=== PATIENT | female | born 1990 | race Hispanic/Latino ===

== ENCOUNTER 2019-09-22 16:12 | Emergency (ER) | payer OTHER ==
[~2019-09-22] VITALS: Ht 162.6 cm; Wt 65.0 kg
[2019-09-22] MEDS ORDERED: PEPC1TAB5 PO (16:20)
[2019-09-22] MEDS ORDERED: RABE1TAB PO (16:20)
[2019-09-22] MEDS ORDERED: TIZA4CAP PO (16:21)
[2019-09-22] MEDS ORDERED: ONDANSETRON 4MG/2ML VIAL IV ONE (17:00)
[2019-09-22] MEDS ORDERED: GI COCKTAIL 50ML BTL(HYOSCYAMINE/MAALOX/LIDOCAINE VISCOUS)(1:3:1) PO ONE (17:00)
[2019-09-22] MEDS ORDERED: KETOROLAC 30 MG/ML 1ML VIAL IV ONE (17:00)
[2019-09-22] MEDS ORDERED: NS 1,000 ML IV ONE (17:00)
[2019-09-22 17:18] LABS: BASO # 0.1 10^3/uL (0.0-0.2); EOS # 0.1 10^3/uL (0.0-0.5); EOS % 1.8 % (0.0-3.0); HEMATOCRIT 40.3 % (36.0-47.0); HEMOGLOBIN 13.9 g/dl (12.0-15.5); LYMPH # 2.2 10^3/uL (1.5-5.0); LYMPH % 29.8 % (24.0-44.0); MEAN CORPUSCULAR HEMOGLOBIN 29.3 pg (27.0-33.0); MEAN CORPUSCULAR HGB CONC 34.5 g/dl (32.0-36.5); MONO # 0.6 10^3/uL (0.0-0.8); MONO % 7.7 % (0.0-5.0); NEUTROPHILS # 4.3 10^3/uL (1.5-8.5); NEUTROPHILS % 59.4 % (36.0-66.0); PLATELET COUNT, AUTOMATED 362 10^3/uL (150-450); RED BLOOD COUNT 4.74 10^6/uL (4.00-5.40); WHITE BLOOD COUNT 7.3 10^3/uL (4.0-10.0)
--- NOTE | 2019-09-22 17:46 | REPVR ---
PROCEDURE INFORMATION: Exam: US Abdomen Limited, Right Upper Quadrant Exam date and time: 09/22/2019 4:58 PM Age: 28 years old Clinical indication: Abdominal pain; Epigastric; Additional info: Ruq pain TECHNIQUE: Imaging protocol: Real-time ultrasound of the abdomen with image documentation. Examination was focused on the right upper quadrant. COMPARISON: No relevant prior studies available. FINDINGS: Liver: Unremarkable as visualized. No hepatic mass identified. Gallbladder: The gallbladder is distended with shadowing gallstones. The gallbladder measures 16.2 cm in length. Borderline gallbladder wall thickening visualized, which can be associated with acute cholecystitis. Common bile duct: 0.4 cm. No dilation. Pancreas: There is limited evaluation of the tail of the pancreas due to bowel gas. No focal abnormality is seen within the visualized head or body of the pancreas. Right kidney: The right kidney measures 9.6 x 3.8 5.7 cm. No hydronephrosis or shadowing nephrolithiasis. IMPRESSION: 1. The gallbladder is distended with shadowing gallstones. Borderline gallbladder wall thickening visualized, which can be associated with acute cholecystitis. Clinical correlation recommended. 2. Additional findings described above. Electronically signed by: Hector Niño On 09/22/2019 17:46:42 PM
[2019-09-22 17:56] LABS: HCG, SERUM QUALITATIVE NEGATIVE (NEGATIVE)
[2019-09-22 18:00] LABS: ALBUMIN 4.3 GM/DL (3.2-5.2); ALT/SGPT 24 U/L (12-78); BILIRUBIN,DIRECT 0.1 MG/DL (0.0-0.2); BILIRUBIN,TOTAL 0.4 MG/DL (0.2-1.0); BLOOD UREA NITROGEN 8 MG/DL (7-18); CALCIUM LEVEL 9.1 MG/DL (8.5-10.1); CARBON DIOXIDE LEVEL 26 MEQ/L (21-32); CHLORIDE LEVEL 105 MEQ/L (98-107); CK-MB VALUE MASS < 1.0 NG/ML (<3.6); CPK CREATINE PHOSPHOKINASE 106 U/L (26-192); CREATININE FOR GFR 0.85 MG/DL (0.55-1.30); GLOMERULAR FILTRATION RATE > 60.0 (>60); GLUCOSE, FASTING 111 MG/DL (70-100); LIPASE 125 U/L (73-393); MB/CK RELATIVE INDEX 0.94 (< OR =4); POTASSIUM SERUM 3.6 MEQ/L (3.5-5.1); SODIUM LEVEL 138 MEQ/L (136-145); TOTAL PROTEIN 7.9 GM/DL (6.4-8.2); TROPONIN I < 0.02 NG/ML (< 0.10)
[2019-09-22 18:30] VITALS: BP 141/75
[2019-09-22] MEDS ORDERED: ONDA4TAB6 PO (18:47)
--- NOTE | 2019-09-22 22:41 | REP ---
REASON: Pleurodynia with inspiration. TWO-VIEW CHEST: COMPARISON: No priors. FINDINGS: The superior mediastinal structures are midline. The cardiac silhouette is unremarkable in size, shape, and position. The diaphragmatic surfaces of the lungs are regular, and the costophrenic angles are clear. The pulmonary mendez are clear. The imaged osseous structures are intact. IMPRESSION: There is no acute cardiopulmonary disease. Electronically Signed by Torsten Murrell DO 09/23/2019 08:34 A
--- NOTE | 2019-09-23 03:44 | ECGEPIP ---
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
--- NOTE | 2019-09-23 09:34 | ED PDOC ---
Post-Departure Follow-Up ft [facility] rosas faxed formal report of us for fu Roxanne Bob MD Sep 23, 2019 09:34
== END 2019-09-22 19:08 | disposition home or self-care (01) ==
LOC: M ED 16:12
DX: K80.51 Calculus of bile duct without cholangitis or cholecystitis with obstruction (principal); K21.9 Gastro-esophageal reflux disease without esophagitis; Z88.0 Allergy status to penicillin
CPT/HCPCS: 71046; 76705; 80048; 80076; 81001; 82550; 82553; 83690; 84484; 84703; 85025; 85379; 87086; 93005; 96374; 96375; 99284; J1885; J2405

== ENCOUNTER → 2019-10-17 | Outpatient (CLI) | payer OTHER ==
[~2019-10-17] MED LIST: ACET-653 PO; ONDA4TAB6 PO; PANT40TA3 PO; PEPC1TAB5 PO; RABE1TAB PO; TIZA4CAP PO
== END ==
LOC: M LABSMTC 09:55
PROVIDERS: ATTEND Anesthesiology
DX: Z01.818 Encounter for other preprocedural examination (principal); Z11.59 Encounter for screening for other viral diseases
CPT/HCPCS: C9803; U0003

== ENCOUNTER 2019-10-20 13:38 | Day surgery (SDC) | payer OTHER ==
[~2019-10-20] VITALS: Ht 162.6 cm; Wt 63.4 kg
[~2019-10-20 13:38] MED LIST changes: +LIDOCAINE 1% MDV 20ML VIAL SQ PRN; +LR 1,000 ML IV ONE; +PANT40TA29 PO; -PANT40TA3 PO; -RABE1TAB PO; +RABE1TAB4 PO
[2019-10-20] MEDS ORDERED: MIDAZOLAM INJ 2MG/2ML VIAL (J2250 PER 1MG) As Ordered ONE (13:48)
[2019-10-20] MEDS ORDERED: KETOROLAC 60MG 2ML VIAL As Ordered ONE ×2 (13:48→17:22)
[2019-10-20] MEDS ORDERED: ONDANSETRON 4MG/2ML VIAL As Ordered ONE (13:48)
[2019-10-20] MEDS ORDERED: fentaNYL 250 MCG/5 ML INJECTION (J3010) As Ordered ONE (13:48)
[2019-10-20] MEDS ORDERED: dexameTHASONE 4 MG/ML 1ML VIAL (J1100 PER 1MG) As Ordered ONE (13:48)
[2019-10-20] MEDS ORDERED: ROCURONIUM BROMIDE 50 MG/5 ML VIAL As Ordered ONE ×2 (13:49→16:28)
[2019-10-20] MEDS ORDERED: PHENYLephrine 500MCG 5ML (100MCG/ML) SYRINGE As Ordered ONE (13:49)
[2019-10-20] MEDS ORDERED: propofoL 200 MG/20 ML VIAL As Ordered ONE ×2 (13:49→16:34)
[2019-10-20] MEDS ORDERED: SUGAMMADEX SODIUM 500 MG/5 ML VIAL (BRIDION) As Ordered ONE (13:49)
[2019-10-20] MEDS ORDERED: LIDOCAINE 2% 100MG/5ML SDV (FOR ANES.) As Ordered ONE (13:49)
[2019-10-20] MEDS ORDERED: ePHEDrine SULFATE 25 MG/5 ML(5MG/ML) SYRINGE As Ordered ONE (13:49)
[2019-10-20] MEDS ORDERED: BUPIVACAINE HCL 0.25% 30ML VIAL As Ordered ONE (15:38)
[2019-10-20] MEDS ORDERED: ACETAMINOPHEN 1000MG 100ML IV BTL (OFIRMEV) (J0131 PER 10MG) As Ordered ONE (16:17)
[2019-10-20] MEDS ORDERED: ACETAMINOPH W/CODEINE #3 TAB UD PO PRN (18:45)
[2019-10-20] MEDS ORDERED: fentaNYL 100 MCG/2 ML INJECTION (J3010) IV PRN (18:45)
[2019-10-20] MEDS ORDERED: METOCLOPRAMIDE INJ 10MG/2ML VIAL (J2765 PER 1) IV PRN (18:45)
[2019-10-20] MEDS ORDERED: ONDANSETRON 4MG/2ML VIAL IV PRN (18:45)
[2019-10-20] MEDS ORDERED: oxyCODONE 5MG TAB PO PRN (18:45)
[2019-10-20] MEDS ORDERED: HYDROMORPHONE HCL 0.5 MG/ 0.5 ML SYRINGE (J1170 PER 1) IV PRN (18:45)
[2019-10-20] MEDS ORDERED: LR 1,000 ML IV SCH (18:45)
[2019-10-20] MEDS ORDERED: ACETAMINOPHEN TAB 650MG DOSE (2X325MG) PO PRN (18:45)
[2019-10-20] MEDS ORDERED: IBUPROFEN 600MG TAB PO PRN (18:45)
[2019-10-20 20:10] VITALS: BP 117/69
--- NOTE | 2019-10-22 15:50 | RO ---
DATE OF PROCEDURE: 10/20/2019 PREOPERATIVE DIAGNOSIS: Symptomatic gallstones. POSTOPERATIVE DIAGNOSIS: Cholelithiasis with acute and chronic cholecystitis and hydrops of the gallbladder. PROCEDURE PERFORMED: Laparoscopic cholecystectomy. SURGEON: Dr. Murray OPERATIONS LIAISON: ANESTHESIA: General. INDICATIONS FOR THE PROCEDURE: Patient is a pleasant 20-year-old who had been seen in the emergency department on 09/22/2019 for an episode of severe upper abdominal pain. She reported a history of what had been diagnosed as gastroesophageal reflux. Per evaluation, gallstones with a distended gallbladder with some borderline gallbladder wall thickening. Since that visit to the emergency department, she has had intermittent recurrent pains brought on by eating. Her history is certainly consistent with biliary colic and possibly a persistent cystic duct obstruction. She is now for laparoscopic cholecystectomy. OPERATIVE PROCEDURE: The patient was brought to the operating room and placed supine on the operating table. She was placed under general endotracheal anesthesia. The patient's abdomen was prepped and draped in a sterile fashion. 0.25% Marcaine was infiltrated at the trocar sites as needed. Initially, a short transverse supraumbilical incision was made. This was deepened to the fascia and a Veress needle was inserted. After a positive hanging drop test, the abdomen was inflated with carbon dioxide gas. Following this a 5 mm port was placed over a 5 mm scope and advanced to the abdominal wall without difficulty. Initial examination showed no evidence of any trocar or Veress needle injury. Initial inspection showed a normal-appearing liver. The gallbladder was markedly elongated and distended and appeared quite edematous and erythematous. No exudate was noted. Visualized portions of the stomach and small and large bowel appeared normal. There were some adhesions noted to the gallbladder of the omentum. Two 5 mm ports were placed in the right upper quadrant and a third 5 mm port was placed in the left upper quadrant. The patient was tilted to a reverse Trendelenburg position and rolled slightly to the left. Graspers were inserted. The gallbladder was quite tensely distended. I therefore aspirated the gallbladder and on doing so removed approximately 100 mL of clear colorless fluid. The gallbladder wall was clearly quite thickened and there were several large stones identified after aspirating the gallbladder. The gallbladder was elevated. There was some significant scarring around the gallbladder neck in particular. The duodenum was adherent to the neck of the gallbladder and this was freed by a combination of sharp and cautery dissection with care not to injure the duodenum. There was clearly a large stone stuck in the gallbladder neck. There was significant scarring at the gallbladder neck initially obscuring the cystic duct and cholecystic artery. As this area was opened up by careful dissection with the hook cautery a somewhat enlarged appearing duct structure was identified, which proved to be the common bile duct. The cystic duct was subsequently identified within the scar tissue and was no more than a centimeter and half in length. There was also a cholecystic artery identified. Initially, the artery was doubly clipped with hemoclips and divided. Subsequently, after some further dissection of scar tissue, the cystic duct was doubly clipped with hemoclips and divided. The gallbladder was then dissected free from the gallbladder bed using cautery dissection. Because of marked thickening of the gallbladder wall this was somewhat slowed. The gallbladder was not perforated in the course of dissection. Once the gallbladder had been completely freed the 5 mm port at the supraumbilical site was converted to an 11 mm port and an Endopouch was inserted. The gallbladder was placed in the Endopouch and set aside. The right upper quadrant was then copiously irrigated and inspected. There was no evidence of bleeding or bile leak. The patient was then returned to a flat position. The abdomen was deflated and the trocars were removed. The gallbladder was recovered through the supraumbilical site but it was necessary to extend the fascial incision with scissors both superiorly and inferiorly to allow passage of the stones. Once the gallbladder was passed the peritoneum was exposed and this was closed with #2-0 Vicryl. The fascia was then closed with several interrupted simple sutures of #2-0 Vicryl. The skin incisions were then all closed with buried sutures of #4-0 Vicryl and Steri-Strips. The patient tolerated the procedure well without apparent complication. She was awakened in the operating room, extubated and moved to the recovery room in stable condition. CLAUDIO
== END 2019-10-20 20:15 | disposition home or self-care (01) ==
LOC: M SDC 13:38
PROVIDERS: ATTEND Surgery
DX: K80.10 Calculus of gallbladder with chronic cholecystitis without obstruction (principal); K82.1 Hydrops of gallbladder; K66.0 Peritoneal adhesions (postprocedural) (postinfection); K21.9 Gastro-esophageal reflux disease without esophagitis; Z79.899 Other long term (current) drug therapy; Z88.0 Allergy status to penicillin
CPT/HCPCS: 47562; 81025; 88304; J0131; J1100; J1885; J2250; J2370; J2405; J3010